=== PATIENT | female | born 1965 | race Caucasian/White ===

== ENCOUNTER 2016-12-27 11:19 | Emergency (ER) | payer OTHER ==
--- NOTE | ~2016-12-27 | CR281 ---
[facility] A Service of [facility] RADIOLOGY TEXT RESULTS PATIENT: ELLIS FARRIS LOCATION: [facility] : 61 UNIT #: [id number] AGE: [address]: Veena Valle SEX: F ORDER DR: [id number] [facility] [address] [place], [place] [address] [id number] MR#: [id number] Acc #: [id number] NAME: ELLIS FARRIS. : 1965 SEX: F STUDY DATE/TIME: 12/27/2016 11:51 UNIT: [facility] ROOM: STUDY DESCRIPTION: CR Wrist Min 3 View Lt Attending Physician: Veena Vlale P.A.-C. Ordering Physician: Veena Valle P.A.-C. Primary Care Physician: No Primary Care Physician MEDICAL IMAGING REPORT This report is preliminary unless electronic signature is present EXAM Left wrist 3 views 12/27/2016 1151 hours CLINICAL HISTORY Patient fell 1 week ago with persistent pain and swelling at both wrists. COMPARISON None. FINDINGS AP, lateral and oblique views demonstrate overall normal bone density. There is deformity of the distal radius which I would favor is related to an old healed fracture rather than acute fracture. No cortical disruption is seen. There is a well-corticated ossicle at the expected location of the ulnar styloid likely also related to old trauma. There is mild osteoarthritis. IMPRESSION There is deformity of the distal radius with appearance most consistent with an old healed fracture. No definite acute radial fracture seen. There is a well-corticated ossicle at the ulnar styloid also likely related to old post-traumatic change. No acute fracture seen. Dictated by... Katina Concepcion M.D. THIS IS AN ELECTRONICALLY VERIFIED REPORT Katina Concepcion M.D. at 12/28/2016 9:31 AM TEREZA/ronnie TD: 12/27/2016 17:00 JOB #: [id number] [facility] A Service of [facility] RADIOLOGY TEXT RESULTS PATIENT: ELLIS FARRIS [facility] #: [id number] : 61 UNIT #: [id number] AGE: [address]: Veena Valle SEX: F ORDER DR: MEDICAL IMAGING REPORT Page 1 of 1 COPY
--- NOTE | ~2016-12-27 | CR282 ---
[facility] A Service of [facility] RADIOLOGY TEXT RESULTS PATIENT: ELLIS FARRIS LOCATION: [facility] : 61 UNIT #: [id number] AGE: [address]: Veena Valle SEX: F ORDER DR: [id number] [facility] [address] [place], [place] [address] [id number] MR#: [id number] Acc #: [id number] NAME: ELLIS FARRIS. : 1965 SEX: F STUDY DATE/TIME: 12/27/2016 UNIT: [facility] ROOM: STUDY DESCRIPTION: CR Wrist Min 3 View Rt Attending Physician: Veena Valle P.A.-C. Ordering Physician: Veena Valle P.A.-C. MEDICAL IMAGING REPORT This report is preliminary unless electronic signature is present EXAM Right wrist 3 views 12/27/2016, 1151 hours HISTORY Patient fell 1 week ago with persistent pain and swelling of both wrists. COMPARISON None. FINDINGS AP, lateral and oblique views demonstrate a normal appearance to the distal radius and ulna. Carpal bones are intact. There is mild osteoarthritic degenerative change at the first carpometacarpal joint. IMPRESSION No right wrist fracture or dislocation. Mild osteoarthritis at the first carpometacarpal articulation. Dictated by... Katina Concepcion M.D. THIS IS AN ELECTRONICALLY VERIFIED REPORT Katina Concepcion M.D. at 12/28/2016 9:31 AM TEREZA/sonia TD: 12/27/2016 16:45 JOB #: [id number] MEDICAL IMAGING REPORT Page 1 of 1 COPY
[~2016-12-27 11:19] MED LIST: ASPIRIN EC81 M1 PO; FLEXERIL10 M1 PO; IBUPROFEN800 MG PO; LORTAB 7.5-5001 TAB PO; METOPROLOL TAR25 MG PO
== END 2016-12-27 12:53 | disposition home or self-care (01) ==
LOC: CFTX 11:19 → CED 11:19 → CFTX 11:49
DX: S63.522A Sprain of radiocarpal joint of left wrist, initial encounter (principal); S63.521A Sprain of radiocarpal joint of right wrist, initial encounter; W22.8XXA Striking against or struck by other objects, initial encounter; Y92.009 Unspecified place in unspecified non-institutional (private) residence as the place of occurrence of the external cause
CPT/HCPCS: 29125; 73110; 99284